=== PATIENT | female | born 2000 | race Asian ===

== ENCOUNTER 2022-06-12 11:12 | Emergency (ER) | payer OTHER, SELFPAY ==
[2022-06-12 11:16] VITALS: BP 122/68; PULSE 90; RESP 18; TEMP 36.9; O2SAT 96; BMI 28.3
--- NOTE | 2022-06-12 11:29 | CRLHL7_ITS ---
For Patients: As a result of the Cures Act, medical imaging exams and procedure reports are released immediately into your electronic medical record. You may view this report before your referring provider. If you have questions, please contact your health care provider. Indication: Injury and pain Technique: Right elbow 3 views Comparison: None Findings: Slightly impacted fracture of radial head. Joint effusion. Remainder normal. Impression: Subtle mildly displaced fracture of the radial head. Dictated by Octaviano Hanks MD @ 06/12/2022 12:02:59 PM (Electronically Signed)
--- NOTE | 2022-06-12 11:29 | CRLHL7_ITS ---
For Patients: As a result of the Cures Act, medical imaging exams and procedure reports are released immediately into your electronic medical record. You may view this report before your referring provider. If you have questions, please contact your health care provider. Indication: Trauma and pain Technique: Right shoulder 3 views. Comparison: None Findings: Bones: Alignment is normal. No fractures or bone lesions. Joint spaces: Unremarkable. Soft tissues: Unremarkable. Impression: No sign of acute injury. Dictated by Octaviano Hanks MD @ 06/12/2022 12:01:50 PM (Electronically Signed)
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
== END 2022-06-12 12:58 | disposition home or self-care (01) ==
LOC: ED 12:31
PROVIDERS: Emergency Provider Family Medicine
DX: S52.124A Nondisplaced fracture of head of right radius, initial encounter for closed fracture (principal); S40.211A Abrasion of right shoulder, initial encounter; V18.0XXA Pedal cycle driver injured in noncollision transport accident in nontraffic accident, initial encounter
CPT/HCPCS: 73030; 73080; 99283; 99284

== ENCOUNTER 2022-06-20 13:16 | Outpatient (CLI) | payer OTHER, SELFPAY ==
[2022-06-20 14:14] LABS: Hematocrit 34.6 % (33.0-51.0); Hemoglobin* 11.1 gm/dL (12.0-16.0); Mean Corpuscular HGB Conc 32 gm/dL (32-36); Mean Corpuscular Hemoglobin 26 pg (26-34); Mean Corpuscular Volume 82 fL (80-100); Platelet Count* 257 K/uL (140-440); Red Blood Count 4.22 m/uL (4.00-5.20); Slide Review Reflex No
[2022-06-20 17:27] LABS: Albumin* 4.5 g/dL (3.3-5.0); Chloride* 105 mmol/L (96-114)
[2022-06-20 17:28] LABS: Potassium* 4.2 mmol/L (3.6-5.1); Sodium* 138 mmol/L (135-149)
[2022-06-20 17:30] LABS: Alkaline Phosphatase* 65 U/L (40-150); Aspartate Amino Transferase* 37 U/L (12-35); Bilirubin Total* 0.3 mg/dL (0.1-1.5); Carbon Dioxide* 26 mmol/L (20-32); Creatinine* 0.6 mg/dL (0.5-1.5); Estimated Glomerular Filt Rate 131 ml/min; Total Protein* 7.3 g/dL (6.0-8.3)
[2022-06-20 17:31] LABS: Alanine Aminotransferase* 24 U/L (4-35); Blood Urea Nitrogen* 12 mg/dL (5-24); Calcium* 9.4 mg/dL (8.4-10.6); Gamma Glutamyl Transpeptidase* 34 U/L (8-55); Glucose* 70 mg/dL (60-115)
[2022-06-20 18:05] LABS: Ferritin* 9.8 ng/mL (6.24-137.0)
== END 2022-06-20 13:17 | disposition home or self-care (01) ==
PROVIDERS: Visit Provider Family Medicine
DX: D64.9 Anemia, unspecified (principal); R79.89 Other specified abnormal findings of blood chemistry; B27.90 Infectious mononucleosis, unspecified without complication
CPT/HCPCS: 80053; 82728; 82977; 85027